=== PATIENT | female | born 1990 | race Caucasian/White ===

== ENCOUNTER 2018-12-09 19:35 | Emergency (ER) | payer BC, OTHER ==
[2018-12-09] MEDS ORDERED: PHENAZOPYRIDINE HCL 200 MG TAB PO ONE (19:52)
--- NOTE | 2018-12-09 19:54 | EDPHY ---
H & P Stated Complaint: UTI LIKE SX FOR PAST HOUR Time Seen by Provider: 12/09/18 19:46 HPI/ROS: CHIEF COMPLAINT: Dysuria HISTORY OF PRESENT ILLNESS: Patient is a 28-year-old healthy female who comes to the emergency department chills last night and then urinary frequency this morning and now severe dysuria over the last hour. She had sex 4 days ago and also had sex in September but has not had sex in between. She does not think that she is . She has not had any vaginal bleeding or discharge. She has a Mirena IUD in place. No fevers. No back pain. She has a history of appendectomy. Severity: Severe Modifying factors: Worsened by REVIEW OF SYSTEMS: Constitutional: denies: chills, fever, recent illness, recent injury EENTM: denies: blurred vision, double vision, nose congestion Respiratory: denies: cough, shortness of breath Cardiac: denies: chest pain, irregular heart rate, lightheadedness, palpitations Gastrointestinal/Abdominal: denies: abdominal pain, diarrhea, nausea, vomiting, blood streaked stools Genitourinary: See HPI Musculoskeletal: denies: joint pain, muscle pain Skin: denies: lesions, rash, jaundice, bruising Neurological: denies: headache, numbness, paresthesia, tingling, dizziness, weakness Hematologic/Lymphatic: denies: blood clots, easy bleeding, easy bruising Immunologic/allergic: denies: HIV/AIDS, transplant 10 systems reviewed and negative except as noted EXAM: GENERAL: Well-appearing, well-nourished and in no acute distress. HEAD: Atraumatic, normocephalic. EYES: Pupils equal round and reactive to light, extraocular movements intact, sclera anicteric, conjunctiva are normal. ENT: TMs normal, nares patent, oropharynx clear without exudates. Moist mucous membranes. NECK: Normal range of motion, supple without lymphadenopathy or JVD. LUNGS: Breath sounds clear to auscultation bilaterally and equal. No wheezes rales or rhonchi. HEART: Regular rate and rhythm without murmurs, rubs or gallops. ABDOMEN: Soft, nontender, normoactive bowel sounds. No guarding, no rebound. No masses appreciated. BACK: No CVA tenderness, no spinal tenderness, step-offs or deformities EXTREMITIES: Normal range of motion, no pitting or edema. No clubbing or cyanosis. NEUROLOGICAL: Cranial nerves II through XII grossly intact. Normal speech, normal gait. 5/5 strength, normal movement in all extremities, normal sensation , normal reflexes PSYCH: Normal mood, normal affect. SKIN: Warm, dry, normal turgor, no visible rashes or lesions. Source: Patient Exam Limitations: No limitations - Personal History LMP (Females 10-55): IUD In Place Current Tetanus/Diphtheria Vaccine: Yes Current Tetanus Diphtheria and Acellular Pertussis (TDAP): Yes - Medical/Surgical History Hx Asthma: Yes Hx Chronic Respiratory Disease: No Hx Diabetes: No Hx Cardiac Disease: No Hx Renal Disease: No Hx Cirrhosis: No Hx Alcoholism: No Hx HIV/AIDS: No Hx Splenectomy or Spleen Trauma: No Other PMH: appy. breast aug in january - Family History Significant Family History: No pertinent family hx - Social History Smoking Status: Never smoked Alcohol Use: None Constitutional: Initial Vital Signs Temperature (C) 37.0 C 12/09/18 19:41 Heart Rate 112 H 12/09/18 19:41 Respiratory Rate 18 12/09/18 19:41 O2 Sat (%) 97 12/09/18 19:41 O2 Delivery Mode Room Air Allergies/Adverse Reactions: No Known Allergies Allergy (Unverified 12/09/18 19:43) Home Medications: Medication Instructions Recorded Lisdexamfetamine Dimesylate 08/29/14 [Vyvanse] Albuterol [Proventil Inhaler HFA 1 - 2 puffs IH Q4H 12/09/18 (*)] Cephalexin [Keflex] 500 mg PO TID #21 cap 12/09/18 Fluconazole [Diflucan (*)] 150 mg PO ONCE #1 tab 12/09/18 Phenazopyridine HCl [Pyridium] 200 mg PO TID #6 tab 12/09/18 Medical Decision Making ED Course/Re-evaluation: 9:00 p.m. We discussed the patient's urinalysis. She feels better was Pyridium. Will start on Keflex as well as write a prescription. Will also continue Pyridium and Diflucan as needed. Encouraged probiotics. She is happy with this and declines further workup or testing at this time. Differential Diagnosis: Partial list of the Differential diagnosis considered include but were not limited to; urinary tract infection, pyelonephritis and although unlikely based on the history and physical exam, I also considered kidney stone, , obstruction, ovarian cyst. I discussed these differential diagnoses and the plan with the patient as well as the usual and expected course. The patient understands that the diagnosis is provisional and that in medicine we are not always correct and that further workup is often warranted. Usual and customary warnings were given. All of the patient's questions were answered. The patient was instructed to return to the emergency department should the symptoms at all worsen or return, otherwise to followup with the physician as we discussed. - Data Points Microbiology Results: MICROBIOLOGY 12/09/18 20:00 Urine,Clean Catch Urine Culture - Final Escherichia Coli Medications Given: Discontinued Medications Phenazopyridine HCl (Pyridium) 200 mg PO EDNOW ONE Stop: 12/09/18 19:53 Last Admin: 12/09/18 20:16 Dose: 200 mg Departure - Departure Disposition: Home, Routine, Self-Care Clinical Impression: Urinary tract infection Qualifiers: Urinary tract infection type: acute cystitis Hematuria presence: without hematuria Qualified Code(s): N30.00 - Acute cystitis without hematuria Condition: Fair Instructions: Urinary Tract Infection in Women (ED) Referrals: NONE *PRIMARY CARE P,. [Primary Care Provider] - As per Instructions Lee Leo MD [Medical Doctor] - 2-3 days, if not improved Prescriptions: Cephalexin [Keflex] 500 mg PO TID #21 cap Fluconazole [Diflucan (*)] 150 mg PO ONCE #1 tab Phenazopyridine HCl [Pyridium] 200 mg PO TID #6 tab
[2018-12-09 21:15] VITALS: BP 120/78
== END 2018-12-09 21:15 | disposition home or self-care (01) ==
DX: N30.00 Acute cystitis without hematuria (principal); Z97.5 Presence of (intrauterine) contraceptive device